=== PATIENT | female | born 1980 | race Caucasian/White ===

== ENCOUNTER 2018-11-07 23:58 | Emergency (ER) | payer OTHER ==
[~2018-11-07] VITALS: Ht 160 cm; Wt 81.0 kg
[~2018-11-07 23:58] MED LIST: HYDR-4011 PO; NAPR-985 PO
[2018-11-08] VITALS: BP 118/76; PULSE 80; RESP 19; Ht 160 cm; Wt 81.0 kg
[2018-11-08] MEDS ORDERED: KETOROLAC 30 MG INJ IM STA (00:53)
[2018-11-08] MEDS ORDERED: DEXAMETHASONE 10 MG/ML 1 ML INJ IM ONE (01:00)
--- NOTE | 2018-11-08 01:05 | ERD ---
ER Documentation Chief Complaint Chief Complaint C/O NON TRAUMATIC MEDIAL BACK PAIN X3 WEEKS, WORSE SINCE THIS AM HPI 38-year-old female past medical history of hypertension, migraine headaches, no past surgical history who presents with complaint of mid to lower back pain over the past 3 weeks. Patient states symptoms have acutely worsened since this morning warranting ED visit. Patient states she has back pain as a localized to mid back. She denies any recent fall or trauma, previous history of back pain complaints, radiation of pain to lower extremities, saddle anesthesia, urinary or bowel incontinence, lower extremity paresthesias or weakness, Blake symptoms such as dysuria, flank pain. Patient was seen at her PMDs office yesterday and prescribed meloxicam and has been taking ibuprofen as well as Tylenol for her symptoms which she states have not helped much. ROS All systems reviewed and are negative except as per history of present illness. Medications Home Meds Active Scripts Naproxen* (Naprosyn*) 500 Mg Tablet, 500 MG PO BID PRN for PAIN AND/OR INFLAMMATION, #30 TAB Prov:JESIKA SEGAL PA-C 11/08/18 Hydrocodone/Acetaminophen ([place] 5-325 Tablet) 1 Each Tablet, 1 TAB PO Q6H PRN for PAIN, #20 TAB Prov:JESIKA SEGAL-[place] 11/08/18 Allergies Allergies: Coded Allergies: No Known Allergy (Unverified , 11/08/18) PMhx/Soc Medical and Surgical Hx: pt denies Medical Hx, pt denies Surgical Hx Hx Alcohol Use: No Hx Substance Use: No Hx Tobacco Use: No Smoking Status: Never smoker FmHx Family History: No diabetes, No coronary disease, No other Physical Exam Vitals Vital Signs Date Temp Pulse Resp B/P (MAP) Pulse Ox O2 O2 Flow FiO2 Time Delivery Rate 11/08/18 97.6 80 19 118/76 99 00:00 (90) Physical Exam I have reviewed the triage vital signs. Const: Well nourished, well developed, appears stated age Eyes: PERRL, no conjunctival injection HENT: NCAT, Neck supple without meningismus CV: RRR, Warm, well-perfused extremities RESP: CTAB, Unlabored respiratory effort GI: soft, non-tender, non-distended, no masses MSK: No gross deformities appreciated, reports pain with passive range of motion of right lower extremity, 5 out of 5 strength throughout bilateral lower extremities, SI LT throughout, good distal pulses Back Exam: Skin: No bruising or rash Compartments: Soft Motor: Normal flexion and extension of bilateral hip/knee/ankle/foot Sensation: Intact to light touch throughout Bones: No midline TTP Skin: Warm, dry. No rashes Neuro: grossly non focal Psych: Appropriate mood and affect. Results 24 hrs Laboratory Tests Test 11/08/18 00:56 POC Beta HCG, Qualitative NEGATIVE Current Medications Medications Dose Sig/Izabel Start Time Status Last (Trade) Ordered Route PRN Stop Time Admin Dose Reason Admin 10 mg ONCE ONCE 11/08/18 Dexamethasone IM 01:00 (Decadron) 11/08/18 01:01 Ketorolac 30 mg ONCE STAT 11/08/18 DC Tromethamine IM 00:53 (Toradol) 11/08/18 00:54 Procedures/MDM 88-year-old female presents complaint of mid to lower back pain. She does not exhibit any red flag symptoms. Low suspicion for acute cord compression or cauda equina at this time, given presentation and symptoms, including epidural abscess or hematoma. Patient has no history of malignancy, active or distant history. Patient has no unexplained weight loss. No recent fevers, rigors, malaise, or recent infection. No history of IVDU or skin-popping. Patient does not have any history concerning for saddle anesthesia/perianal sensory loss or complaining of decreased rectal tone. Patient does not have urinary retention or inability to control urine from overflow. Patient has no tenderness overlying spinous process. Patient has no focal weakness on examination. Given exam and history, low suspicion for cord compression, cauda equina, epidural abscess/hematoma. Distally neurovascularly intact. Query likely musculoskeletal component. Discussed pain control,and follow up with PMD. Cautious return precautions discussed w/ full understanding ED course: Toradol, Decadron, pain improve with Rx, will discharge with appropriate pain medications, anti-inflammatories, patient advised that if her symptoms do not андрей with these medications she would likely require additional imaging to referral by her PMD. DISPOSITION PLAN: We discussed follow up with the patient's primary care doctor within 24 to 48 hours. Patient counseled regarding my diagnostic impression and care plan. Prior to discharge all questions answered. Pt agrees with treatment plan and understands strict return precautions. Precautionary instructions provided including instructions to return to the ER if not improving or for any worsening or changing symptoms or concerns. Disclaimer: Inadvertent spelling and grammatical errors are likely due to EHR/dictation software use and do not reflect on the overall quality of patient care. Also, please note that the electronic time recorded on this note does not necessarily reflect the actual time of the patient encounter. Departure Diagnosis: Primary Impression: Back pain Condition: Stable Patient Instructions: Back Pain (Acute Or Chronic) Additional Instructions: Call your primary care doctor TOMORROW for an appointment during the next 2-3 days.See the doctor sooner or return here if your condition worsens before your appointment time. JESIKA SEGAL PA-C Nov 08, 2018 01:05
== END 2018-11-08 01:52 | disposition home or self-care (01) ==
LOC: FTE 23:58
DX: M54.5 Low back pain (principal); I10 Essential (primary) hypertension
CPT/HCPCS: 81001; 81025; J1100; J1885; 96372

== ENCOUNTER 2019-01-16 12:53 | Inpatient (IN) | payer OTHER ==
[~2019-01-16] VITALS: Ht 162.6 cm; Wt 81.1 kg
[2019-01-16 13:13] VITALS: Ht 162.6 cm; Wt 81.1 kg
[2019-01-16] MEDS ORDERED: ACETAMINOPHEN 325 MG TAB PO PRN (19:00)
[2019-01-16] MEDS ORDERED: ONDANSETRON 4 MG INJ IV PRN (19:00)
[2019-01-16] MEDS: LACTATED RINGER'S 1,000 ML IV SCH (19:28)
[2019-01-16] MEDS ORDERED: NAPROXEN 500 MG TAB PO PRN (19:30)
[2019-01-16] MEDS ORDERED: HYDROCODONE/APAP (5/325) TAB PO PRN (19:30)
[2019-01-17] MEDS: LACTATED RINGER'S 1,000 ML IV SCH ×2 (02:20→11:43)
[2019-01-17 07:26] VITALS: BP 109/62; PULSE 84; RESP 18
[2019-01-17 14:21] VITALS: BP 131/70; PULSE 60; RESP 18
[2019-01-17 19:20] VITALS: BP 105/60; PULSE 84; RESP 18
== END 2019-01-17 21:08 | disposition home or self-care (01) | DRG 779 ==
LOC: FTE 12:53 → MS1 18:53
PROVIDERS: ADMIT Obstetrics & Gynecology; ATTEND Obstetrics & Gynecology
DX: O03.6 Delayed or excessive hemorrhage following complete or unspecified spontaneous abortion (principal); I10 Essential (primary) hypertension
CPT/HCPCS: 36415; 76801; 76817; 84702; 85025; 85610; 85730; 86850; 86900; 86901; J7120